=== PATIENT | female | born 1940 | race Caucasian/White ===

== ENCOUNTER 2020-10-15 21:29 | Inpatient (IN) ==
[2020-10-16] MEDS ORDERED: Acetaminophen 325 MG TABLET PO PRN (00:32)
[2020-10-16] MEDS ORDERED: Ondansetron 4 MG/2 ML VIAL IVP PRN (00:32)
[2020-10-16] MEDS ORDERED: Naloxone 0.4 MG/ML INJ IVP PRN (00:32)
[2020-10-16 01:57] LABS: Basophils % 0.2 %; Eosinophils % 0.2 %; Hematocrit 27.3 % (35.3-44.9); Hemoglobin 8.9 g/dL (11.5-15.4); Lymphocytes # 1.4 K/mcL (0.6-4.6); Lymphocytes % 15.7 %; Mean Corpuscular HGB Conc 32.6 g/dL (31.6-35.5); Mean Corpuscular Hemoglobin 28.4 pg (28.0-33.3); Mean Corpuscular Volume 87.2 fL (83.0-100.0); Mean Platelet Volume 10.9 fL (9.4-12.4); Monocytes % 10.5 %; Neutrophils # 6.7 K/mcL (1.6-8.9); Platelet Count 166 K/mcL (140-400); Red Blood Count 3.13 M/mcL (3.82-4.97); Segmented Neutrophils % 72.4 %; White Blood Count 9.2 K/mcL (4.3-11.1)
[2020-10-16 02:07] LABS: Prothrombin Time 11.5 Seconds (9.4-12.1)
[2020-10-16 02:16] LABS: % Iron Saturation 4 % (15-50); Iron 14 mcg/dL (50-170); Transferrin 231 mg/dL (203-362)
[2020-10-16 02:21] LABS: Albumin 3.4 g/dL (3.5-5.7); Albumin/Globulin Ratio 1.2 (1.1-2.2); Bilirubin,Total 0.4 mg/dL (0.3-1.0); Calcium 8.4 mg/dL (8.6-10.3); Globulin 2.8 g/dL (2.4-3.5); Magnesium 1.8 mg/dL (1.6-2.6); Potassium 3.1 mEq/L (3.5-5.1); Total Protein 6.2 g/dL (6.4-8.9); Troponin I 0.1 ng/mL (< 0.04)
[2020-10-16] MEDS ORDERED: Potassium Chloride 40 MEQ, Lidocaine 1% 2 ML in 0.9 % Sodium Chloride 500 ML IVPB ONE (02:24)
[2020-10-16 02:29] LABS: Activated Partial Thrombo Time > 360.0 Seconds (26.0-36.0)
[2020-10-16 02:34] LABS: Ferritin 56 ng/mL (10-120)
[2020-10-16 02:40] LABS: Folate 14.8 ng/mL (3.0-16.0)
[2020-10-16] MEDS: Pantoprazole 40 MG VIAL IVP SCH ×2 (05:17→17:00)
[2020-10-16 15:51] LABS: Potassium 3.9 mEq/L (3.5-5.1); Troponin I 0.09 ng/mL (< 0.04)
[2020-10-16] MEDS: 0.9 % Sodium Chloride 1,000 ML IVC SCH (20:37)
[2020-10-16] MEDS ORDERED: *HR* LORazepam 2 MG/ML VIAL IVP ONE (23:14)
[2020-10-17] MEDS: Pantoprazole 40 MG VIAL IVP SCH ×2 (05:17→22:18)
[2020-10-17 07:50] LABS: Adenovirus Not Detected (Not Detect); Bordetella Pertussis Not Detected (Not Detect); Chlamydophila pneumoniae Not Detected (Not Detect); Coronavirus 229E Not Detected (Not Detect); Coronavirus HKU1 Not Detected (Not Detect); Coronavirus NL63 Not Detected (Not Detect); Coronavirus OC43 Not Detected (Not Detect); Human Metapneumovirus Not Detected (Not Detect); Human Rhinovirus/Enterovirus Not Detected (Not Detect); Influenza A Subtype 2009 H1 Not Detected (Not Detect); Influenza B Not Detected (Not Detect); Mycoplasma pneumoniae Not Detected (Not Detect); Parainfluenza Virus 1 Not Detected (Not Detect); Parainfluenza Virus 2 Not Detected (Not Detect); Parainfluenza Virus 3 Not Detected (Not Detect); Parainfluenza Virus 4 Not Detected (Not Detect); Respiratory Syncytial Virus Not Detected (Not Detect); SARS-CoV-2 Not Detected (Not Detect)
[2020-10-17] MEDS: amLODIPine 5 MG TABLET PO SCH (11:08)
[2020-10-17] MEDS ORDERED: *HR* Propofol 500 MG/50 ML BOTTLE IVP ONE (11:34)
[2020-10-17] MEDS ORDERED: Lidocaine -MPF 4% 5 ML AMPUL TP ONE (11:34)
[2020-10-17] MEDS ORDERED: Isovue-370 500 ML BOTTLE IVP ONE (12:17)
[2020-10-18 02:08] LABS: Hemoglobin 7.7 g/dL (11.5-15.4)
[2020-10-18 02:10] LABS: Hematocrit 23.4 % (35.3-44.9); Immature Platelets 2.6 % (1.1-6.1); Mean Corpuscular HGB Conc 32.9 g/dL (31.6-35.5); Mean Corpuscular Hemoglobin 28.3 pg (28.0-33.3); Mean Platelet Volume 10.4 fL (9.4-12.4); Red Blood Count 2.72 M/mcL (3.82-4.97); Red Cell Distribution Width 14.7 % (11.5-14.5); White Blood Count 7.5 K/mcL (4.3-11.1)
[2020-10-18 02:26] LABS: BUN/Creatinine Ratio 28 (6-26); Blood Urea Nitrogen 24 mg/dL (8-23); Calcium 8.2 mg/dL (8.6-10.3); Carbon Dioxide 23 mEq/L (23-29); Chloride 98 mEq/L (98-107); Glucose 95 mg/dL (70-105); Magnesium 1.4 mg/dL (1.6-2.6); Osmolality,Calculated 274 (280-300); Potassium 3.5 mEq/L (3.5-5.1); Sodium 130 mEq/L (136-145); eGFR For African Americans > 60 (> 60); eGFR For Non-African Americans > 60 (> 60)
[2020-10-18 05:01] LABS: Hematocrit 23.6 % (35.3-44.9); Hemoglobin 7.7 g/dL (11.5-15.4)
[2020-10-18] MEDS: 0.9 % Sodium Chloride 1,000 ML IVC SCH (05:45)
[2020-10-18] MEDS: Pantoprazole 40 MG VIAL IVP SCH ×2 (05:46→17:25)
[2020-10-18] MEDS ORDERED: 0.9 % Sodium Chloride 250 ML ONE (06:10)
[2020-10-18] MEDS ORDERED: Aspirin Enteric Coated 81 MG Tablet PO SCH (09:00)
[2020-10-18] MEDS: amLODIPine 5 MG TABLET PO SCH (09:23)
[2020-10-18] MEDS: Calcium Gluconate 1gm/50mL 1 GM/50 ML BAG IVPB SCH ×2 (09:27→10:23)
[2020-10-18 16:55] LABS: C-Reactive Protein 42 mg/L (Less than 10)
[2020-10-18] MEDS: Cholestyramine 4 GM POWD.PACK PO SCH (17:25)
[2020-10-19] MEDS: *HR* Labetalol 20 MG/4 ML SYRINGE IVP PRN ×2 (00:57→10:45)
[2020-10-19 03:26] LABS: Mean Corpuscular HGB Conc 33.9 g/dL (31.6-35.5); Mean Corpuscular Hemoglobin 29.1 pg (28.0-33.3); Mean Corpuscular Volume 85.9 fL (83.0-100.0); Mean Platelet Volume 10.4 fL (9.4-12.4); Platelet Count 147 K/mcL (140-400); Red Blood Count 3.61 M/mcL (3.82-4.97); Red Cell Distribution Width 15.2 % (11.5-14.5); White Blood Count 11.1 K/mcL (4.3-11.1)
[2020-10-19 03:29] LABS: Hemoglobin 10.5 g/dL (11.5-15.4)
[2020-10-19 03:47] LABS: BUN/Creatinine Ratio 24 (6-26); Blood Urea Nitrogen 21 mg/dL (8-23); Calcium 8.4 mg/dL (8.6-10.3); Carbon Dioxide 22 mEq/L (23-29); Chloride 97 mEq/L (98-107); Glucose 125 mg/dL (70-105); Osmolality,Calculated 272 (280-300); Potassium 3.5 mEq/L (3.5-5.1); Sodium 129 mEq/L (136-145); eGFR For African Americans > 60 (> 60); eGFR For Non-African Americans > 60 (> 60)
[2020-10-19] MEDS: Pantoprazole 40 MG VIAL IVP SCH ×2 (05:11→17:05)
[2020-10-19] MEDS: Cholestyramine 4 GM POWD.PACK PO SCH ×2 (07:21→17:05)
[2020-10-19] MEDS ORDERED: 0.9 % Sodium Chloride 1,000 ML IVC SCH (07:30)
[2020-10-19] MEDS: lisinopriL 5 MG TABLET PO SCH (08:53)
[2020-10-19] MEDS: amLODIPine 5 MG TABLET PO SCH (08:54)
[2020-10-19 14:48] LABS: BUN/Creatinine Ratio 21 (6-26); Blood Urea Nitrogen 20 mg/dL (8-23); Calcium 8.5 mg/dL (8.6-10.3); Carbon Dioxide 23 mEq/L (23-29); Chloride 97 mEq/L (98-107); Glucose 141 mg/dL (70-105); Osmolality,Calculated 271 (280-300); Potassium 3.7 mEq/L (3.5-5.1); Sodium 128 mEq/L (136-145); eGFR For African Americans > 60 (> 60); eGFR For Non-African Americans 57 (> 60)
[2020-10-19] MEDS: Metoprolol XL (24 HR) Succ 25 MG TAB.ER.24H PO SCH (15:09)
[2020-10-20 01:15] LABS: Hematocrit 30.8 % (35.3-44.9); Hemoglobin 10.2 g/dL (11.5-15.4); Mean Corpuscular HGB Conc 33.1 g/dL (31.6-35.5); Mean Corpuscular Hemoglobin 28.5 pg (28.0-33.3); Mean Platelet Volume 10.2 fL (9.4-12.4); Platelet Count 173 K/mcL (140-400); Red Blood Count 3.58 M/mcL (3.82-4.97); Red Cell Distribution Width 15.2 % (11.5-14.5); White Blood Count 10.1 K/mcL (4.3-11.1)
[2020-10-20 01:37] LABS: BUN/Creatinine Ratio 22 (6-26); Blood Urea Nitrogen 19 mg/dL (8-23); Calcium 8.1 mg/dL (8.6-10.3); Carbon Dioxide 20 mEq/L (23-29); Chloride 100 mEq/L (98-107); Glucose 113 mg/dL (70-105); Osmolality,Calculated 273 (280-300); Potassium 3.5 mEq/L (3.5-5.1); Sodium 130 mEq/L (136-145); eGFR For African Americans > 60 (> 60); eGFR For Non-African Americans > 60 (> 60)
[2020-10-20] MEDS: Pantoprazole 40 MG VIAL IVP SCH (06:31)
[2020-10-20] MEDS: Metoprolol XL (24 HR) Succ 25 MG TAB.ER.24H PO SCH (07:24)
[2020-10-20] MEDS: lisinopriL 5 MG TABLET PO SCH (07:24)
[2020-10-20] MEDS: amLODIPine 5 MG TABLET PO SCH (07:24)
[2020-10-20] MEDS: Cholestyramine 4 GM POWD.PACK PO SCH (07:24)
[2020-10-20 10:26] VITALS: BP 148/90
== END 2020-10-20 11:35 | disposition home health service (06) | DRG 377 ==
LOC: 3ANU → SUATTDRO 23:35
PROVIDERS: ADMIT Internal Medicine; ATTEND Internal Medicine
PROC: ENDOCBX (2020-10-17 10:35)
PROC: ENDOEBX (2020-10-17 10:35)